=== PATIENT | female | born 1950 | race Caucasian/White ===

== ENCOUNTER 2016-05-10 16:24 | Emergency (ER) | payer BC, OTHER ==
[~2016-05-10] VITALS: Ht 167.6 cm; Wt 64.4 kg
[~2016-05-10 16:24] MED LIST: CALC500T21 PO; MAGN250T14 PO; METH750T2 PO; MIRA33502 PO; VITA50TA30 PO
[2016-05-10 16:27] VITALS: BP 154/111; PULSE 122; RESP 16; TEMP 98.8; O2SAT 96
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
[2016-05-10] MEDS ORDERED: TETANUS/DIPHTHERIA TOXOID ADULT 0.5 ML VIAL IM ONE (16:45)
== END 2016-05-10 17:10 | disposition home or self-care (01) ==
LOC: PHEFT 16:24
DX: S80.812A Abrasion, left lower leg, initial encounter (principal); S80.211A Abrasion, right knee, initial encounter; S40.811A Abrasion of right upper arm, initial encounter; J45.909 Unspecified asthma, uncomplicated; Z23 Encounter for immunization; V18.0XXA Pedal cycle driver injured in noncollision transport accident in nontraffic accident, initial encounter; Y93.55 Activity, bike riding; Y92.9 Unspecified place or not applicable; Y99.8 Other external cause status
CPT/HCPCS: 90471; 90714